=== PATIENT | male | born 1950 | race Caucasian/White ===

== ENCOUNTER → 2017-11-18 | Outpatient (CLI) | payer OTHER ==
[~2017-11-18] MED LIST: ADVAIR 250-501 EACH INH; CARBIDOPA-LEVO1 EACH; CYMBALTA60 MG PO; HYDROCODONE-AP1 EAC6 PO; HYTRIN 5 M5 MG/1 CAP PO; LISINOPRIL20 MG PO; MOBIC7.5 MG PO; NEURONTIN 300300 M1 PO; NORCO 5-325 TA1 EACH PO; NORCO 7.5-3251 EACH PO; NORVASC5 MG PO; PAXIL 20 MG TAB20 MG PO; PREDNISONE 10 M10 MG PO; PRINIVIL20 MG PO; REMERON15 MG PO; SINEMET 10-1001 EAC1 PO
== END ==
LOC: M.RAD 15:15
DX: J06.9 Acute upper respiratory infection, unspecified (principal)

== ENCOUNTER 2019-01-23 18:14 | Inpatient (IN) | payer OTHER ==
[~2019-01-23] VITALS: Ht 170.2 cm; Wt 99.3 kg
[2019-01-23 18:18] VITALS: BP 148/79
[2019-01-23 18:54] LABS: ABSOLUTE BASOPHILS 0.1 thou/uL (0.0-0.2); ABSOLUTE EOSINOPHILS 0.1 thou/uL (0.0-0.7); ABSOLUTE LYMPHOCYTES 1.5 thou/uL (0.8-5.3); ABSOLUTE MONOCYTES 0.8 thou/uL (0.0-1.2); BASOPHILS 1.1 %; HEMATOCRIT 43.1 % (42.0-52.0); HEMOGLOBIN 14.6 gm/dL (14.0-18.0); LYMPHOCYTES 12.1 %; MCH 30.5 pg (26.0-34.0); MCHC 33.8 g/dL (28.0-37.0); MCV 90.1 fL (80.0-100.0); MONOCYTES 6.1 %; MPV 8.7 fl. (7.2-11.1); NUCLEATED RBCS 0 /100WBC; PLATELET COUNT* 222 thou/uL (150-400); POLYS 79.7 %; RBC 4.78 mil/uL (4.50-6.00); RDW-CV 13.7 % (10.5-14.5); WBC 12.6 thou/uL (4.0-11.0)
[2019-01-23 19:05] LABS: PROTIME 10.6 Seconds (9.20-11.50)
[2019-01-23 19:14] LABS: ANION GAP 11 mmol/L (7-16); BUN 18 mg/dL (7-18); CALCIUM 8.4 mg/dL (8.5-10.1); CHLORIDE 104 mmol/L (98-107); CO2 25 mmol/L (21-32); CREATININE 1.7 mg/dL (0.6-1.3); GLUCOSE 160 mg/dL (70-99); POTASSIUM 4.3 mmol/L (3.5-5.1); SODIUM 140 mmol/L (136-145); TROPONIN-I LEVEL <0.06 ng/mL (<0.06)
[2019-01-23 19:16] LABS: ALBUMIN 3.6 g/dL (3.4-5.0); ALKALINE PHOSPHATASE 63 U/L (46-116); NT-PRO BRAIN NAT PEPTIDE 73 pg/mL (<300); SGOT 19 U/L (15-37); SGPT 33 U/L (30-65); TOTAL BILIRUBIN 0.6 mg/dL (<0.1-1.0)
[2019-01-23 21:02] VITALS: BP 124/69
[2019-01-23 21:06] VITALS: BP 148/79
[2019-01-24] VITALS: BP 105/47
[2019-01-24] MEDS ORDERED: COLACE100 MG PO (00:15)
[2019-01-24 01:00] LABS: BE -1.1 mmol/L (-2 to +3); PCO2 34.7 mmHg (35.0-45.0); pH 7.431 (7.340-7.450)
[2019-01-24 04:00] VITALS: BP 105/46
[2019-01-24 05:25] LABS: URINE BILIRUBIN NEGATIVE (Negative); URINE BLOOD NEGATIVE (Negative); URINE CLARITY CLEAR; URINE COLOR YELLOW; URINE GLUCOSE-RANDOM NEGATIVE (Negative); URINE KETONES NEGATIVE (Negative); URINE LEUKOCYTES NEGATIVE (Negative); URINE NITRITE NEGATIVE (Negative); URINE PROTEIN NEGATIVE (Negative); URINE UROBILINOGEN 0.2 E.U./dl (0.2-1.0)
--- NOTE | 2019-01-24 06:04 | NUR ---
REPORT RECIEVED FROM ER. PT ADMITTED TO ROOM 310. PT ORIENTED TO ROOM, CALL LIGHT SHOWN, FALL AGREEMENT GONE OVER, PT STATED UNDERSTANDING. ADMISSION DOCUMENTED. IV PATENT. WHILE GOING OVER ADMISSION, PT WAS ASKED IF HE HAD HIS HOME MEDICATIONS WITH HIM, PT STATED THAT HE DID HAVE HIS NIGHT TIME PILLS WITH HIM, BUT THAT WAS IT. PT EDUCATED THAT HE WAS NOT SUPPOSED TO TAKE HOME MEDICATIONS WHILE HE WAS IN THE HOSPTIAL THAT WAY WE WOULD KNOW HOW MUCH AND OF WHAT HE TOOK. PT THEN TOOK PILLS STATING THAT HE NEEDED TO TAKE THEM TONIGHT SINCE THEY WERE HIS NIGHT TIME PILLS. PT NOT WANTING TO ANSWER QUESTIONS DURRING ADMISSION STATING HE JUST WANTED TO EAT AND GO TO BED, STATING THAT WE ALREADY HAD ALL THOSE ANSWERS, PT EDUCATED THAT WE STILL HAD TO GO OVER QUESTIONS, PT DID ANSWER ADMISSION QUESTIONS. IV PATENT. TELE MONITOR IN PLACE READING SR-ST. WILL CONTINUE WITH PLAN OF CARE.
[2019-01-24 08:03] VITALS: BP 117/67
[2019-01-24 12:03] VITALS: BP 107/59
--- NOTE | 2019-01-24 13:50 | EKG ---
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 : 1950 Requested By: Gray Benavides Order Number: [id number] MD: Parminder Aguilar Measurements Intervals [place] Rate: 100 P: 64 AR: 155 QRS: 73 QRSD: 80 T: 45 QT: 318 QTc: 411 Interpretive Statements Sinus tachycardia Baseline wander in lead(s) V4 Compared to ECG 10/09/2011 15:18:49 Sinus rhythm no longer present Sinus arrhythmia no longer present Electronically Signed On 01-24-2019 13:50:22 CDT by Parminder Aguilar [email or web address] <ELECTRONICALLY SIGNED> By: Parminder Aguilar MD, FACC 01/24/19 1350 1850 1850 Parminder Aguilar MD, [facility] /EPI
[2019-01-24 15:07] LABS: ABSOLUTE EOSINOPHILS 0.1 thou/uL (0.0-0.7); ABSOLUTE LYMPHOCYTES 1.5 thou/uL (0.8-5.3); ABSOLUTE MONOCYTES 0.8 thou/uL (0.0-1.2); ABSOLUTE NEUTROPHILS 7.3 thou/uL (1.6-8.1); BASOPHILS 0.4 %; EOSINOPHILS 0.7 %; HEMATOCRIT 37.5 % (42.0-52.0); HEMOGLOBIN 12.7 gm/dL (14.0-18.0); LYMPHOCYTES 15.4 %; MCH 30.5 pg (26.0-34.0); MCHC 33.8 g/dL (28.0-37.0); MCV 90.1 fL (80.0-100.0); MONOCYTES 8.4 %; MPV 8.9 fl. (7.2-11.1); NUCLEATED RBCS 0 /100WBC; PLATELET COUNT* 174 thou/uL (150-400); POLYS 75.1 %; RBC 4.16 mil/uL (4.50-6.00); RDW-CV 14.2 % (10.5-14.5); WBC 9.8 thou/uL (4.0-11.0)
[2019-01-24 15:15] LABS: CALCIUM 8.1 mg/dL (8.5-10.1); CREATININE 1.3 mg/dL (0.6-1.3); POTASSIUM 3.7 mmol/L (3.5-5.1)
[2019-01-24 16:37] VITALS: BP 124/67
--- NOTE | 2019-01-24 16:40 | NUR ---
ASSUMMED CARE OF PT AT 0730, PT ALERT AND ORIENTED, PT UP INDEPENDENTLY, DENIES DIZZINESS, PT HAS OCCASIONAL NON PRODUCTIVE COUGH, O2 SATS MAINTAINED ON RA, IV PATENT AND SALINE LOCKED, TAKING FOOD AND FLUIDS WELL, DENIES PAIN, DOES STATE THAT HE HAS PROBLEMS WITH RESTLESS LEGS AND REQUESTED MEDICATION, ORDER OBTAINED AND GIVEN X 1 WITH GD RELIEF, PT ENOURAGED TO DEEP BREATHE, ASSESSMENT COMPLETE, WILL CONTINUE TO MONITOR.
[2019-01-24 20:00] VITALS: BP 124/55
[2019-01-25 00:15] VITALS: BP 122/69
--- NOTE | 2019-01-25 00:53 | NUR ---
INITAL ASSESMENT COMPLETED AT 1999. PT RESTING QUIETLY IN BED, DENIED PAIN OR DISCOMFORT AT THAT TIME. PT'S O2 SAT 95% ON ROOM AIR. PT RECIEVING IV ANTIBIOTICS AND BREATHING TREATENTS FOR PNEUMONIA. PT GIVEN MEDS ORDERED PER EMAR. CALL LIGHT IN REACH, PT USING APPROPRIATELY.
[2019-01-25 03:30] VITALS: BP 105/57
[2019-01-25 03:58] LABS: ABSOLUTE BASOPHILS 0.1 thou/uL (0.0-0.2); ABSOLUTE EOSINOPHILS 0.2 thou/uL (0.0-0.7); ABSOLUTE LYMPHOCYTES 2.2 thou/uL (0.8-5.3); ABSOLUTE MONOCYTES 0.7 thou/uL (0.0-1.2); ABSOLUTE NEUTROPHILS 4.6 thou/uL (1.6-8.1); BASOPHILS 0.8 %; EOSINOPHILS 2.3 %; HEMATOCRIT 38.7 % (42.0-52.0); LYMPHOCYTES 28.3 %; MCH 30.6 pg (26.0-34.0); MCHC 33.7 g/dL (28.0-37.0); MCV 90.8 fL (80.0-100.0); MONOCYTES 8.8 %; MPV 8.8 fl. (7.2-11.1); NUCLEATED RBCS 0 /100WBC; PLATELET COUNT* 185 thou/uL (150-400); POLYS 59.8 %; RBC 4.26 mil/uL (4.50-6.00); RDW-CV 14.1 % (10.5-14.5); WBC 7.8 thou/uL (4.0-11.0)
[2019-01-25 08:19] VITALS: BP 105/57
[2019-01-25] MEDS ORDERED: AZITHROMYCIN 2250 MG PO (08:33)
[2019-01-25] MEDS ORDERED: CEFDINIR300 MG PO (08:34)
[2019-01-25] MEDS ORDERED: VENTOLIN HFA 1818 GM INH (08:35)
[2019-01-25 08:45] VITALS: BP 105/57
== END 2019-01-25 08:50 | disposition home or self-care (01) | DRG 177 ==
LOC: M.ERS 18:14 → M.3W 19:48 → M.TBA-ER 19:48 → M.3W 20:57
PROVIDERS: Internal Medicine; Nurse Practitioner Psychiatric/Mental Health; ADMIT Family Medicine
DX: J15.6 Pneumonia due to other Gram-negative bacteria (principal); R65.11 Systemic inflammatory response syndrome (SIRS) of non-infectious origin with acute organ dysfunction; J44.0 Chronic obstructive pulmonary disease with (acute) lower respiratory infection; N17.9 Acute kidney failure, unspecified; I10 Essential (primary) hypertension; E11.9 Type 2 diabetes mellitus without complications; G89.29 Other chronic pain; M54.9 Dorsalgia, unspecified; G25.81 Restless legs syndrome; Z96.652 Presence of left artificial knee joint; Z88.0 Allergy status to penicillin; Z88.1 Allergy status to other antibiotic agents; Z79.84 Long term (current) use of oral hypoglycemic drugs

== ENCOUNTER → 2019-03-09 | Outpatient (CLI) | payer OTHER ==
[~2019-03-09] MED LIST changes: +AZITHROMYCIN 2250 MG PO; +CEFDINIR300 MG PO; +COLACE100 MG PO; +VENTOLIN HFA 1818 GM INH
== END ==
LOC: M.RAD 13:59
DX: M19.031 Primary osteoarthritis, right wrist (principal); M19.032 Primary osteoarthritis, left wrist; M19.041 Primary osteoarthritis, right hand; M19.042 Primary osteoarthritis, left hand; Z88.0 Allergy status to penicillin; Z88.1 Allergy status to other antibiotic agents

== ENCOUNTER → 2021-01-10 | Outpatient (CLI) | payer OTHER ==
[~2021-01-10] MED LIST changes: +IBUPROFEN 200200 M1 PO; +VITAMIN D21250 MC1 PO
== END ==
LOC: M.PC 08:53
PROVIDERS: ATTEND Physical Medicine & Rehabilitation
DX: M51.36 Other intervertebral disc degeneration, lumbar region (principal); M47.816 Spondylosis without myelopathy or radiculopathy, lumbar region; M79.604 Pain in right leg; M79.605 Pain in left leg; Z88.8 Allergy status to other drugs, medicaments and biological substances; Z79.899 Other long term (current) drug therapy

== ENCOUNTER → 2021-05-28 | Outpatient (CLI) | payer OTHER | END | disposition home or self-care (01) | LOC: M.PC 08:10 | PROVIDERS: ATTEND Physical Medicine & Rehabilitation | DX: M54.5 Low back pain (principal); M47.816 Spondylosis without myelopathy or radiculopathy, lumbar region; M47.26 Other spondylosis with radiculopathy, lumbar region; M51.36 Other intervertebral disc degeneration, lumbar region; J44.9 Chronic obstructive pulmonary disease, unspecified; Z98.890 Other specified postprocedural states; Z79.899 Other long term (current) drug therapy; Z79.891 Long term (current) use of opiate analgesic; Z88.0 Allergy status to penicillin; Z88.8 Allergy status to other drugs, medicaments and biological substances ==

== ENCOUNTER → 2021-06-11 | Outpatient (CLI) | payer OTHER | END | disposition home or self-care (01) | LOC: M.PC 09:30 | PROVIDERS: ATTEND Physical Medicine & Rehabilitation | DX: M54.5 Low back pain (principal); M47.816 Spondylosis without myelopathy or radiculopathy, lumbar region; M51.16 Intervertebral disc disorders with radiculopathy, lumbar region; M79.604 Pain in right leg; M79.605 Pain in left leg; J44.9 Chronic obstructive pulmonary disease, unspecified; Z98.890 Other specified postprocedural states; Z79.899 Other long term (current) drug therapy; Z88.0 Allergy status to penicillin; Z88.8 Allergy status to other drugs, medicaments and biological substances ==

== ENCOUNTER → 2021-07-02 | Outpatient (CLI) | payer OTHER | LOC: M.LAB 10:25 | PROVIDERS: ATTEND Physical Medicine & Rehabilitation | DX: Z01.812 Encounter for preprocedural laboratory examination (principal); Z20.822 Contact with and (suspected) exposure to COVID-19 ==